=== PATIENT | male | born 2000 | race Caucasian/White ===

== ENCOUNTER 2025-06-13 16:42 | Emergency (ER) | payer SELFPAY ==
[~2025-06-13] VITALS: Ht 167.6 cm; Wt 86.0 kg
[2025-06-13 16:44] VITALS: TEMP 36.9; O2SAT 100
[2025-06-13] MEDS ORDERED: IBUP-2030 MT (17:52)
[2025-06-13 18:23] VITALS: BP 133/69; PULSE 76; RESP 18
[2025-06-13] MEDS: KETOROLAC 30MG/ML VIAL IM ONE (18:23)
== END 2025-06-13 18:26 | disposition home or self-care (01) ==
LOC: ER 16:42
DX: S43.102A Unspecified dislocation of left acromioclavicular joint, initial encounter (principal); E11.9 Type 2 diabetes mellitus without complications; I11.0 Hypertensive heart disease with heart failure; I50.9 Heart failure, unspecified; Z55.6 Problems related to health literacy; Z59.00 Homelessness unspecified; W50.0XXA Accidental hit or strike by another person, initial encounter; Y93.89 Activity, other specified; Y92.89 Other specified places as the place of occurrence of the external cause; Y99.8 Other external cause status
CPT/HCPCS: 99283; 73030; 96372; J1885